=== PATIENT | female | born 1970 | race Caucasian/White ===

== ENCOUNTER 2020-04-16 18:35 | Emergency (ER) | payer OTHER ==
[~2020-04-16] VITALS: Ht 149.9 cm; Wt 52.6 kg
[2020-04-16 19:03] VITALS: Ht 149.9 cm; Wt 52.6 kg
[2020-04-16 20:45] VITALS: BP 152/66
== END 2020-04-16 20:45 | disposition home or self-care (01) ==
LOC: ED 18:35
DX: S60.111A Contusion of right thumb with damage to nail, initial encounter (principal); W23.0XXA Caught, crushed, jammed, or pinched between moving objects, initial encounter; Y93.89 Activity, other specified; Y92.810 Car as the place of occurrence of the external cause; Y99.8 Other external cause status